=== PATIENT | female | born 1935 | race Caucasian/White ===

== ENCOUNTER → 2016-05-15 | Outpatient (CLI) | payer MEDICARE, BC ==
[~2016-05-15] MED LIST: ASPI325T6 PO; ASPIRIN 81M81 MG/TA2 PO; CELEXA40 MG PO; DEPAKOTE ER 25250 MG PO; DUO-KAPS1 CAP PO; EVISTA 60MG60 MG/TAB PO; IMDUR 30MG30 MG/TAB PO; LEVAQUIN 5500 MG/TA1 PO; LIPITOR20 MG PO; NITROSTAT0.4 MG/TAB SL; SYNTHROID0.05 MG/TA PO; TOPROL XL 25MG25 MG PO; TYLENOL 325MG325 MG PO; VITAMIN E 400 U4001 PO; ZESTRIL 5MG5 MG PO
== END ==
LOC: MC.RAD 12:55
DX: D24.2 Benign neoplasm of left breast (principal); D24.1 Benign neoplasm of right breast; Z80.3 Family history of malignant neoplasm of breast

== ENCOUNTER → 2017-09-03 | Outpatient (CLI) | payer MEDICARE, BC | LOC: MC.RAD 13:40 | DX: Z12.31 Encounter for screening mammogram for malignant neoplasm of breast (principal); Z95.0 Presence of cardiac pacemaker ==